=== PATIENT | male | born 1990 | race Two or more races ===

== ENCOUNTER 2025-05-07 07:42 | Outpatient (CLI) | payer OTHER ==
[2025-05-07 08:13] LABS: Urine Protein, UAD Negative (Negative)
[2025-05-07 08:18] LABS: Nucleated Red Blood Cells % 0.1 %
[2025-05-07 08:21] LABS: Hematocrit 47.9 % (41.0-53.0); Hemoglobin 16.3 g/dL (13.5-17.5); Mean Corpuscular Hemoglobin 27.1 pg (28.0-32.0); Mean Corpuscular Volume 79.6 fL (80.0-100.0)
[2025-05-07 08:56] LABS: Iron 134.0 ug/dL (65-175)
[2025-05-07 08:57] LABS: Prostate Specific Antigen 1.26 ng/mL (0.0-4.0)
[2025-05-07 08:58] LABS: Alanine Aminotransferase 25 U/L (7-40); Albumin 4.8 g/dL (3.2-4.8); Alkaline Phosphatase 113 U/L (46-116); Anion Gap 9 (5-15); BUN/Creatinine Ratio 11.5 (10.0-20.0); Blood Urea Nitrogen 11 mg/dL (9-23); Calcium 9.6 mg/dL (8.7-10.4); Carbon Dioxide 24 mmol/L (20-31); Glucose 98 mg/dL (74-106); Potassium 4.2 mmol/L (3.5-5.1); Sodium 142 mmol/L (136-145); Total Protein 8.0 g/dL (5.7-8.2); Triglycerides 127 mg/dL (< 150)
[2025-05-07 08:59] LABS: Bilirubin, Total 0.9 mg/dL (0.2-1.0); Chloride 109 mmol/L (98-107); Cholesterol 231 mg/dL (< 200); HDL Cholesterol 60 mg/dL (40-59); Total Iron Binding Capacity 322.0 ug/dL (250-425)
[2025-05-07 10:01] LABS: Uric Acid 6.6 mg/dL (3.7-9.2)
== END 2025-05-07 17:00 | disposition home or self-care (01) ==
LOC: LAB 07:42
PROVIDERS: ATTEND Family Medicine
DX: Z00.00 Encounter for general adult medical examination without abnormal findings (principal)
CPT/HCPCS: 36415; 80053; 80061; 81001; 82306; 82607; 82746; 83036; 83540; 83550; 84153; 84403; 84443; 84550; 85025